=== PATIENT | female | born 1970 | race Caucasian/White ===

== ENCOUNTER 2023-11-01 14:59 | Emergency (ER) | payer OTHER, SELFPAY ==
[2023-11-01 15:13] VITALS: BP 139/68; PULSE 71; RESP 20; TEMP 37.5; O2SAT 100
--- NOTE | 2023-11-01 16:24 | ED.URI ---
HPI - URI/Sore Throat General Chief Complaint: Upper Respiratory Infection Stated Complaint: Cough/Chest Congestion Source: patient, RN notes reviewed and old records reviewed Mode of arrival: ambulatory Limitations: no limitations History of Present Illness HPI Narrative: 53 year old female who presents to [facility] care with complaints of 2 month duration of cough with increased cough for the past 2 weeks. Patient reports that she has increased cough with mucous production of greenish yellow mucous ,Patient reports that she has been using her Albuterol Nebulizer and also her inhaler without resolution of symptoms. Patient reports some low grade temps, patient reports that cough is worse at night.. MD elicited complaint: cough, rhinorrhea and nasal congestion Onset (ago): week(s) (increased symptoms for 2 weeks, has had cough for 2 month) Severity: moderate Able to tolerate fluids by mouth: Yes Treatments prior to arrival: other (inhalers and nebulizer) Related Data Home Medications Medication Instructions Recorded Confirmed amlodipine 2.5 mg tablet 2.5 mg PO DAILY 11/01/23 11/01/23 lurasidone 40 mg tablet 40 mg PO DAILY 11/01/23 11/01/23 sertraline 50 mg tablet 50 mg PO DAILY 11/01/23 11/01/23 sumatriptan succinate 100 mg tablet 100 mg PO BID PRN Migraine Headache 11/01/23 11/01/23 trazodone 50 mg tablet 50 mg PO QHS 11/01/23 11/01/23 Allergies Allergy/AdvReac Type Severity Reaction Status Date / Time hydrocodone Allergy Unknown Unknown Verified 11/01/23 15:28 hydroxyzine Allergy Unknown Unknown Verified 11/01/23 15:28 meperidine Allergy Unknown Unknown Verified 11/01/23 15:28 ANTICHOLINERGICS,OTHER Allergy Unknown Unknown Uncoded 11/01/23 15:28 ATROPINE SULFATE (Generic Allergy Unknown Unknown Uncoded 11/01/23 15:28 Allergy) VISTARIL, DEMEROL, ATROPINE Allergy Unknown Unknown Uncoded 11/01/23 15:28 Review of Systems Review of Systems: CONSTITUTIONAL: Denies malaise, chills, sweats, low grade temps. EYES: Denies visual changes, redness, or discharge. ENT: Reports rhinorrhea, congestion, sinus pain,no otalgia and no sore throat. CARDIOVASCULAR: Denies chest pain, palpitations, or edema. RESPIRATORY: Reports cough which has increased in the past 2weeks.? Denies acute dyspnea. GASTROINTESTINAL: Denies abdominal pain, nausea, vomiting, diarrhea SKIN: Denies rash or itching. MUSCULOSKELETAL: Denies myalgia. NEUROLOGIC: Denies headache. All systems reviewed & are unremarkable except as noted in HPI and below PMFSH Past Medical History Medical History (Updated 11/04/23 @ 20:31 by Julieta Frankel NP) Anxiety and depression CAD (coronary artery disease) Factor V deficiency Surgical History Surgical History (Updated 11/04/23 @ 20:30 by Julieta Frankel NP) H/O: hysterectomy Stented coronary artery Family History Family History (Updated 11/04/23 @ 20:29 by Julieta Frankel NP) Other Heart disease Social History Social History (Updated 11/04/23 @ 20:28 by Julieta Frankel NP) Smoking status: Never smoker Alcohol intake: unknown Substance use type: does not use Gender identity (if verbalized by the patient): Female Comments At time of signature, agree with nursing past medical, surgical, social and family history. There is no relevant family history pertinent to the presenting complaint Exam Narrative: GENERAL: Well-appearing, well-nourished, and in no acute distress. HEAD: Normocephalic EYES: PERRLA, conjunctivae clear ENT: Nares clear, turbinates edematous and erythematous, yellow discharge. Mucous membranes moist. TM pearly mejía with dull light reflex bilaterally; no tragal tenderness. Oropharynx erythematous without lesions. Tonsils not enlarged and without exudate, no drooling, no hoarseness, no trismus, uvula midline. NECK: Supple. No lymphadenopathy CHEST: Clear to auscultation, breath sounds equal. No wheezing, rhonchi, rales, or stridor. No respir
== END 2023-11-01 16:40 | disposition home or self-care (01) ==
PROVIDERS: Emergency Provider Registered Nurse
DX: J32.9 Chronic sinusitis, unspecified (principal); R05.9 Cough, unspecified; F32.A Depression, unspecified; F41.9 Anxiety disorder, unspecified; I25.10 Atherosclerotic heart disease of native coronary artery without angina pectoris; D68.2 Hereditary deficiency of other clotting factors; Z95.5 Presence of coronary angioplasty implant and graft
CPT/HCPCS: 99213; G0463

== ENCOUNTER 2023-11-24 10:08 | Emergency (ER) | payer OTHER, SELFPAY ==
[2023-11-24 10:17] VITALS: BP 132/106; PULSE 61; RESP 16; TEMP 36.2; O2SAT 100
--- NOTE | 2023-11-24 10:29 | ED.URI ---
HPI - URI/Sore Throat General Chief Complaint: Upper Respiratory Infection Stated Complaint: Congestion/Ear Pain Time Seen by Provider: 11/24/23 10:25 Source: patient, RN notes reviewed and old records reviewed Mode of arrival: ambulatory Limitations: no limitations History of Present Illness HPI Narrative: 53-year-old female presents to [facility] Care with complaints of left ear pain with and nasal congestion starting this morning with decreased hearing. She states that she also has some discomfort also to her right ear. Patient reports that she had sinusitis one month ago and was treated with antibiotics at that time and those symptoms resolved after taking medication. She state that she works in a [employer] and they have had a lot of ill clients. MD elicited complaint: rhinorrhea, nasal congestion and other (ear pain) Onset (ago): day(s) (this morning.) Pain scale (0-10): 5 Able to tolerate fluids by mouth: Yes Treatments prior to arrival: none Related Data Home Medications Medication Instructions Recorded Confirmed amlodipine 2.5 mg tablet 2.5 mg PO DAILY 11/01/23 11/24/23 sumatriptan succinate 100 mg tablet 100 mg PO BID PRN Migraine Headache 11/01/23 11/24/23 trazodone 50 mg tablet 50 mg PO QHS 11/01/23 11/24/23 apixaban 2.5 mg tablet (Eliquis) 2.5 mg PO BID 11/24/23 11/24/23 atorvastatin 20 mg tablet 20 mg PO DAILY 11/24/23 11/24/23 lurasidone 80 mg tablet 80 mg PO DAILY 11/24/23 11/24/23 sertraline 100 mg tablet 100 mg PO DAILY 11/24/23 11/24/23 Allergies Allergy/AdvReac Type Severity Reaction Status Date / Time atropine Allergy Unknown Unknown Verified 11/24/23 10:25 hydrocodone Allergy Unknown Unknown Verified 11/24/23 10:23 hydroxyzine Allergy Unknown Unknown Verified 11/24/23 10:23 meperidine Allergy Unknown Unknown Verified 11/24/23 10:23 Review of Systems Review of Systems: CONSTITUTIONAL: Denies malaise, chills, sweats, or fever. EYES: Denies visual changes, redness, or discharge. ENT: Reports rhinorrhea, congestion,no sinus pain,bilateral otalgia, decreased hearing left ear and no sore throat. CARDIOVASCULAR: Denies chest pain, palpitations, or edema. RESPIRATORY: Reports no cough.? Denies dyspnea. GASTROINTESTINAL: Denies abdominal pain, nausea, vomiting, diarrhea SKIN: Denies rash or itching. MUSCULOSKELETAL: Denies myalgia. NEUROLOGIC: Denies headache. All systems reviewed & are unremarkable except as noted in HPI and below PMFSH Past Medical History Medical History (Updated 11/26/23 @ 06:56 by Julieta Frankel NP) Anxiety and depression CAD (coronary artery disease) Factor V deficiency Migraine Schizo affective schizophrenia Surgical History Surgical History (Updated 11/26/23 @ 06:51 by Julieta Frankel NP) H/O: hysterectomy History of carpal tunnel surgery of left wrist History of lumpectomy of left breast Hx of breast reduction, elective Stented coronary artery Family History Family History (Updated 11/04/23 @ 20:29 by Julieta Frankel NP) Other Heart disease Social History Social History (Updated 11/04/23 @ 20:28 by Julieta Frankel NP) Smoking status: Never smoker Alcohol intake: unknown Substance use type: does not use Gender identity (if verbalized by the patient): Female Comments At time of signature, agree with nursing past medical, surgical, social and family history. There is no relevant family history pertinent to the presenting complaint Exam Narrative: GENERAL: Well-appearing, well-nourished, and in no acute distress. HEAD: Normocephalic EYES: PERRLA, conjunctivae clear ENT: Nares clear, turbinates edematous and erythematous, clear discharge. Mucous membranes moist. TM pearly mejía with dull light reflex bilaterally; no tragal tenderness.left ear canal red with some irritation, no drainage. Oropharynx erythematous without lesions. Tonsils not enlarged and without exudate, no drooling, no hoarseness, no trismus, uvul
[2023-11-24 10:46] VITALS: BP 122/73
== END 2023-11-24 10:46 | disposition home or self-care (01) ==
PROVIDERS: Emergency Provider Registered Nurse
DX: H60.502 Unspecified acute noninfective otitis externa, left ear (principal); R09.81 Nasal congestion; I25.10 Atherosclerotic heart disease of native coronary artery without angina pectoris; D68.2 Hereditary deficiency of other clotting factors; F41.9 Anxiety disorder, unspecified; F20.9 Schizophrenia, unspecified; Z95.5 Presence of coronary angioplasty implant and graft
CPT/HCPCS: 99213; G0463

== ENCOUNTER 2024-07-13 08:51 | Emergency (ER) | payer OTHER, SELFPAY ==
--- NOTE | ~2024-07-13 | XR_ITS ---
EXAMINATION: XR chest 2V DATE: 07/13/2024 09:49 INDICATION: Cough. TECHNIQUE: Frontal and lateral views of the chest were obtained. COMPARISON: None. FINDINGS: There is no pneumonia, pleural effusion, or pneumothorax. The heart size is normal. IMPRESSION: 1. No acute cardiopulmonary disease. Reviewed, dictated and finalized at location A. RACY COORDINATOR
[2024-07-13 08:58] VITALS: BP 127/78; PULSE 95; RESP 20; TEMP 37.1; O2SAT 100
--- OUTSIDE RECORDS SUMMARY | 2024-07-13 08:58 | XMS_ITS | Clinical Summary ---
Author Organization [facility] Address [facility] [place] [address] Care Team Providers Care Sandwich Artist Name Role Phone Bridges, Tiffanie TINAJERO Primary Care Provider [phone] Allergies Active Allergy Reactions Criticality Noted Date Comments Atropine Unknown 10/29/2015 Bee Venom Anaphylaxis High 03/30/2015 Meperidine Unknown 10/29/2015 Milk (Cow) Rash Low 03/30/2015 Peanut Oil Anaphylaxis High 04/02/2012 Stops breathing Hydroxyzine Infusion Reaction 12/06/2020 Wasp Venom Protein Other (see comment) High 04/02/20 12 Stops breathing Medications albuterol sulfate HFA 108 (90 Base) MCG/ACT inhaler Inhale 2 puffs into the lungs every 6 (six) hours as needed. 1 Active cetirizine 10 MG tablet Take 10 mg by mouth. Active EPINEPHrine 0.3 MG/0.3ML injection 0.3 mg. 1 Active sertraline (ZOLOFT) 100 MG tablet Take 1 tablet (100 mg total) by mouth nightly at bedtime. 5 Active montelukast 10 MG tablet Take 10 mg by mouth nightly at bedtime. 1 Active lurasidone (LATUDA) 80 MG tablet Take 1 tablet (80 mg total) by mouth daily with breakfast. Active ondansetron 4 MG tablet 1 tablet (4 mg total). 1 Active COMPRESSION STOCKINGS, DME,Indications :Swelling of lower limb Apply 1 Package topically daily. 20-30 mmHg knee high 1 Package 5 1 Active topiramate 100 MG tablet Take 1.5 tablets (150 mg total) by mouth 2 (two) times daily. 1 Active traZODone (DESYREL) 50 MG tablet Take 1 tablet (50 mg total) by mouth nightly at bedtime. at bedtime. 4 Active amLODIPine (NORVASC) 2.5 MG tablet Take 1 tablet (2.5 mg total) by mouth daily. 4 Active apixaban (ELIQUIS) 2.5 MG tablet Take 1 tablet (2.5 mg total) by mouth 2 (two) times daily. 180 tablet 3 4 11/12/19 Active atorvastatin (LIPITOR) 20 MG tablet Take 1 tablet (20 mg total) by mouth nightly at bedtime. 90 tablet 3 4 11/12/19 Active Active Problems Problem Noted Date Diagnosed Date Abnormal nuclear cardiac imaging test 01/06/2021 Swelling of lower limb 12/16/2020 Precordial pain 12/12/2020 Coronary artery disease invo lving [place] coronary artery of [place] heart with angina pectoris 12/12/2020 History of coronary artery stent placement 12/12 Abnormal ECG 12/12/2020 Thrombophlebitis of superfic ial veins of right lower extremity 12/12/2020 History of DVT (deep vein thrombosis) 12/12/2020 History of pulmonary embolism 12/12/2020 Obesity (BMI 30.0-34.9) 12/12/2020 Factor V Leiden mutation ([facility]) 03/27 Encounters Date Type Department Care Team Description 04/23/2024 Decision Diagnostics Message Enc [facility], [address] [address] Rajeev, [facility] Provider Cancelled appointment from Last 3 Months Family History Medical History Relation Comments AAA Father Heart Attack Father Stent Cardiac Father Heart Attack Maternal Grandfather Stroke Maternal Grandmother Breast Cancer Other Ovarian Cancer Other Heart Attack Paternal Grandfather Relation Status Comments Brother Alive Father Alive Maternal Grandfather Maternal Grandmother Mother Alive Other Paternal Grandfather Paternal Grandmother Sister 1 Alive Sister 2 Alive Sister 3 Alive Social History Tobacco Use Types Packs/Day Years Used Date Smoking Tobacco: Never Smokeless Tobacco: Never Alcohol Use Standard Drinks/Week Comments Never 0 (1 standard drink = 0.6 oz pur e alcohol) Comments No Sex and Gender Information Value Date Recorded Sex Assigned at Female 11/09/2023 8:51 AM CDT Legal Sex Female 10:20 PM CDT Gender Identity Female 11/09/2023 8:51 AM CDT Sexual Orientation Straight 11/09/2023 8: 51 AM CDT Occupation Industry Job Start Date Job End Date [employer] Not on file Not on file Not on file Last Filed Vital Signs Vital Sign Reading Time Taken Comments Blood Pressure 122/82 11/12/2023 2:30 PM CDT Pulse 77 11/12/2023 2:30 PM CDT Temperature 36.1 C (97 F) 01/10/2021 9:43 AM CDT Respiratory Rate 16 01/10/2021 9:43 AM CDT Oxygen Saturation 97% 11/12/2023 2:30 PM CDT Inhaled Oxygen Concentration - - Weight 115.5 kg (254 lb 9.6 oz) 11/12/2023 2:30 PM CDT Height 185.4 cm (6' 1 ) 11/12/2023 2:30 PM CDT Body Mass Index 33.59 11/12/2023 2:30 PM CDT Plan of Treatment Health Maintenance Due Date Last Done Comments Colorectal Cancer Screening Colonoscopy (10 Years) 1970 Annual Physical 02/22/1975 Pneumococcal Vaccine: Pediatrics (0 to 5 Years) and At-Risk Patients (6 to 64 Years) (1 of 2 - PCV) 02/22/1978 Hepatitis C 02/22/1990 Hepatitis B Vaccines (1 of 3 - 19+ 3-dose series) 02/22/1991 Mammogram Screening 2012 ASCVD LDL 02/24/2015 02/24/2014 Zoster Vaccines (1 of 2) 02/22/2022 COVID-19 Vaccine (1 - season) 2024 Influenza Adult (#1) 2024 02/25/2019, 02/20/2018, 02/06/2017, Additional history exists DTaP, Tdap and Td Vaccines (2 - Td or Tdap) 08/16/2025 08/17/2015 Meningococcal B Vaccine Aged Out No l onger eligible based on patient's age to complete this topic Meningococcal Vaccine Aged Out No liliane presley eligible based on patient's age to complete this topic RSV Immunizations Under 20 Months Aged Out No longer eligible based on patient's age to complete this topic Procedures Procedure Name Priority Date/Time Associated Diagnosis Comments LIPID PANEL Routine 02/24/2014 12:00 AM CDT from Last 3 Months or Most Recently Relevant to Health Maintenance Results * LIPID PANEL (02/24/2014 12:00 AM CDT) TRIGLYCERIDES 62 0 - 150 mg/dl MEDINFORMATIX TO EPIC CONVERSION CHOLESTEROL 155 0 - 200 mg/dl MEDINFORMATIX TO EPIC CONVERSION HDL 75 40 - 59 mg/dl MEDINFORMATIX TO EPIC CONVERSION LDL CONVERSION 68 0 - 100 mg/dl MEDINFORMATIX TO EPIC CONVERSION 02/24/2014 02/24/2014 Narrative MEDINFORMATIX TO EPIC CONVERSION - 02/27/2014 11:06 AM CDT Reviewed by MILKA Feb 27 2014 11:07:03:000AM us Generic Conversion Md [facility] Final R esult MEDINFORMATIX TO EPIC CONVERSION from Last 3 Months or Most Recently Relevant to Health Maintenance Insurance Advance Directives Documents on File Type Date Recorded Patient Acquisitions Librarian Expl anation Legal Documents 01/13/2015 SLEGAL Care Teams Sandwich Artist Relationship Specialty Start Date End Date Bridges, LIOR Moreno [address] [place] [address] PCP - General NURSE PRACTITIONER 01/20/24
--- OUTSIDE RECORDS SUMMARY | 2024-07-13 08:58 | XMS_ITS | Encounter Summary ---
Author Organization [facility] Address [address] [place] [address] Care Team Providers Care Night Warehouse Manager Name Role Phone Tiffanie Bridges Primary Care Provider [phone] Encounter Details Date Type Department Care Team (Late st Contact Info) Description 04/23/2024 [employer]RU Message Enc [facility] [address] Rajeev, [facility] Provider Cancelled appointment Social History Tobacco Use Types Packs/Day Years [...] file Not on file Not on file documented as of this encounter Plan of Treatment Not on file documented as of this encounter Visit Diagnoses Not on filedocumented in this encounter Care Teams Night Warehouse Manager Relationship Specialty Start Date End Date Tiffanie Bridges APNP [address] [place] [address] PCP - General NURSE PRACTITIONER 01/20/24 documented as of this encounter
--- OUTSIDE RECORDS SUMMARY | 2024-07-13 08:58 | XMS_ITS ---
Author Organization [facility] Address [address] [place] [address] Care Team Providers Care Track Subway Repair Supervisor Name Role Phone Liz Myers Primary Care Provider Reason For Referral Reason excessive subq fat a t left lateral chest wall- patient request evaluation for removal Diagnosis 1 Excessive subcutaneo us fat (E66.9) Referral Organization [facility] Referring Provider First Name Liz Referring Provider Last Name Lucia Referring Provider Speciality Nurse Prac titioner Referred Provider [facility]ICINE REFERRA L Referred Provider Specialty Surgery General Notes Teresa Escobar 024 10:22:10 AM >Referral was sent to [facility] , Awaiting appt, Teresa Escobar 09/21/2023 02:50:02 PM >Appt: 10/11/2023 at 1:00PM [facility] General Surgery - Dr. Morales, Devin7 [facility] [address] Floor [place], [place], Libertad Finch 12/10/2023 08:53:40 AM >PER [facility] APPT HAS BEEN BUMPED Referral Priority Routine Referral Appointment Date 10/11/2023 REASON FOR VISIT Test results Problems Problem Type SNOMED Code ICD Code Onset Dates Problem Status W/U Status Risk Notes Problem [id number] Excessive subcutaneous fat (E66.9) Active confirmed Encounters Encounter Location Date Provider Diagnosis [facility] [address] [place] [address] 08/17/2023Kam Myers Excessive subcutaneo us fat E66.9 Assessments Encounter Date Diagnosis (ICD Code) Assessment Notes Treatment Notes Treatment Clinical Notes Section Notes 08/17/2023 Excessive subcutaneous fat (ICD-10 - E66.9) Plan Of Treatment Referrals Referral Date Details 08/17/2023 08/17/2023, excessiv e subq fat at left lateral chest wall- patient request evaluation for removal, [facility] Progress Notes * Eloise LOGANbaltaaDOB:[birth year] (53 yo F)Acc No.[id number]:08/17/2023 Patient: Renetta CADET :1970 A ge:53 Y S ex:Female Address:[address] [place] [address], [facility] [address] [place] [id number] Subjective: * Chief Complaints: * T est results * Medical History: * Surgical History: * Hospitalization/Major Diagno stic Procedure: * Medications: Objective: * Vitals: * Physical Examination: Assessment: * Assessment: 1. E xcessive subcutaneous fat - E66.9 (Primary) Plan: * Treatment: * Procedure Codes: * true * Date: Generated for Nicolasa zelaya/Nathalia/eTransmitting on: 0 07/13/2024 08:57 AM FAIRGROUND OPERATOR Consultation Request Notes Referral Date Referring Provider Referred Provider Not es 08/17/2023 Liz Myers [facility], exc essive subq fat at left lateral chest wall- patient request evaluation for removal
--- OUTSIDE RECORDS SUMMARY | 2024-07-13 08:58 | XMS_ITS | Data Portability ---
Author Organization [facility] Address [address] [place] [address] Care Team Providers Care Smog Technician Name Role Phone TIFFANIE PARR Primary Care Provider [phone] VILMA CARLTON Psychiatrist [facility] Magistrate Assessment No assessment recorded. Plan of Treatment Reminders Order Date Submit Date Provider Last Modified By Organization Details Last Modified Time Details Appointments ANY 15 2024 08:30A M Tiffanie Parr APN, [employer]-C Not available Not available Not available Lab TSH, ultra-sen sitive, serum 2023 024 TOMEKA [facility], [address], [place], [address], 06/18/2024 12:11:06 CMP, serum or plasma 2023 024 TOMEKA [facility], [address], [place], [address], 06/18/2024 12:11:05 lipid panel, serum 2023 024 TOMEKA [facility], [address], [place], [address], 06/18/2024 12:11:03 CBC 2023 024 TOMEKA [facility], [address], [place], [address], 06/18/2024 12:11:09 HbA1c (hemoglob in A1c), blood 2023 024 LINDSAY [facility], [address], [address], [place], [address], 06/18/2024 12:11:07 Referral None recorded. Procedures None recorded. Surgeries None recorded. Imaging None recorded. Medication Orders topiramat e 100 mg tablet 2024 025 [facility], [address], [address], [place], [place], [id number], 06/17/2024 11:45:59 amoxicill in 500 mg capsule 2024 [facility], [address], [address], [place], [place], [id number], 06/17/2024 11:46:00 furosemid e 20 mg tablet 2024 025 [facility], [address], [address], [place], [place], [id number], 06/17/2024 11:45:57 topiramat e 100 mg tablet 2023 024 [facility], [address], [address], [place], [place], [id number], 02/12/2024 10:44:45 EpiPen 2-Francisco 0.3 mg/0.3 mL injection , auto-inje ctor 2023 [facility], [address], [address], [place], [place], [id number], 06/17/2024 11:13:49 albuterol sulfate HFA 90 mcg/actua tion aerosol inhaler 2023 025 [facility], [address], [address], [place], [place], [id number], 06/17/2024 11:13:50 Patient TargetsNo targets recorded. Patient Instructions Encounter Date Encounter Id Patient Instructions Last Modified By Organization Details Last Modified Time 02/12/2024 [id number] influenza (flu) vaccine: care instructions Not available 02/12/2024 10:44:16 high cholesterol : care instructions Not available 02/12/2024 10:44:16 factor V leiden: care instructions Not available 02/12/2024 10:44:16 A healthy lifestyle: care instructions Not available 02/12/2024 10:44:16 learning about high blood pressure Not available 02/12/2024 10:44:16 Continue all medications as prescribed. Not available 02/12/2024 10:43:19 follow up in 2 months Not available 02/12/2024 10:43:32 06/17/2024 [id number] Acute Sinusitis: Care Instructions [email or web address] Not available 06/17/2024 11:43:41 learning about high blood pressure Not available 06/17/2024 11:43:41 Increase intake of fresh fruits, and vegetables. Avoid packaged foods and fast foods. Follow a low salt diet, drink at least 8-10 8oz glasses of water a day, exercise most days of the week. Take all medications as prescribed. Keep appointments with PCP and all specialists. Not available 06/17/2024 11:43:18 follow up in 4 months Not available 06/17/2024 11:43:27 Reason for Referral None Reported. Results Created Date Observation Date Name Description Value Unit Range Abnormal Flag Note LastModifiedBy Organization Detail LastModifiedTime 06/17/1906/18/2024 LIPID PANEL cholesterol, total 195 mg/dL 100-19 9 Not Available [facility] ([facility]) [address] [facility], [place], [address], 06/18/2024 12:11:03 06/17/19 25 06/18/2024 LIPID PANEL triglyceride s 102 mg/dL 0-149 Not Available [facility] ([facility]) [address] [facility], [place], [address], 06/18/2024 12:11:03 06/17/19 25 06/18/2024 LIPID PANEL HDL cholesterol 61 mg/dL >39 Not Available [facility] ([facility]) [address] [facility] [place], [address], 06/18/2024 12:11:03 06/17/19 25 06/18/2024 LIPID PANEL VLDL cholesterol kari 18 mg/dL 5-40 Not Available [facility] ([facility]) [address] [facility] [place], [address], 06/18/2024 12:11:03 06/17/19 25 06/18/2024 LIPID PANEL LDL chol calc ([facility]) 116 mg/dL 0-99 above high normal Not Available [facility] ([facility]) [address] [facility] [place], [address], 06/18/2024 12:11:03 06/17/19 25 06/18/2024 COMP. METAB OLIC PANEL (14) glucose 88 mg/dL 70-99 Not Available [facility] ([facility]) [address] [facility] [place], [address], 06/18/2024 12:11:05 06/17/19 25 06/18/2024 COMP. METAB OLIC PANEL (14) BUN 21 mg/dL 6-24 Not Available [facility] ([facility]) [address] [facility] [place], [address], 06/18/2024 12:11:05 06/17/19 25 06/18/2024 COMP. METAB OLIC PANEL (14) creatinine 1.23 mg/dL 0.57-1 .00 above high normal Not Available [facility] ([facility]) [address] [facility] [place], [address], 06/18/2024 12:11:05 06/17/19 25 06/18/2024 COMP. METAB OLIC PANEL (14) eGFR 53 mL/mi n/1.7 3 >59 below low normal Not Available [facility] ([facility]) [address] [facility] [place], [address], 06/18/2024 12:11:05 06/17/19 25 06/18/2024 COMP. METAB OLIC PANEL (14) BUN/creatini ne ratio 17 9-23 Not Available [facility] ([facility]) [address] [facility] [place], [address], 06/18/2024 12:11:05 06/17/19 25 06/18/2024 COMP. METAB OLIC PANEL (14) sodium 140 mmol/ L 134-14 4 Not Available [facility] ([facility]) [address] [facility] [place], [address], 06/18/2024 12:11:05 06/17/19 25 06/18/2024 COMP. METAB OLIC PANEL (14) potassium 4.0 mmol/ L 3.5-5. 2 Not Available [facility] ([facility]) [address] [facility] [place], [address], 06/18/2024 12:11:05 06/17/19 25 06/18/2024 COMP. METAB OLIC PANEL (14) chloride 107 mmol/ L 96-106 above high normal Not Available [facility] ([facility]) [address] [facility] [place], [address], 06/18/2024 12:11:05 06/17/19 25 06/18/2024 COMP. METAB OLIC PANEL (14) carbon dioxide, total 22 mmol/ L 20-29 Not Available [facility] ([facility]) [address] [facility] [place], [address], 06/18/2024 12:11:05 06/17/19 25 06/18/2024 COMP. METAB OLIC PANEL (14) calcium 9.5 mg/dL 8.7-10 .2 Not Available [facility] ([facility]) [address] [facility], [place], [address], 06/18/2024 12:11:05 06/17/19 25 06/18/2024 COMP. METAB OLIC PANEL (14) protein, total 6.9 g/dL 6.0-8. 5 Not Available [facility] ([facility]) [address] [place], [address], 06/18/2024 12:11:05 06/17/19 25 06/18/2024 COMP. METAB OLIC PANEL (14) albumin 4.2 g/dL 3.8-4. 9 Not Available [facility] ([facility]) [address] [place] [place], [address], 06/18/2024 12:11:05 06/17/19 25 06/18/2024 COMP. METAB OLIC PANEL (14) globulin, total 2.7 g/dL 1.5-4. 5 Not Available [facility] ([facility]) [address] [facility] [place], [address], 06/18/2024 12:11:05 06/17/19 25 06/18/2024 COMP. METAB OLIC PANEL (14) bilirubin, total 0.3 mg/dL 0.0-1. 2 Not Available [facility] ([facility]) [address] [facility] [place], [address], 06/18/2024 12:11:05 06/17/19 25 06/18/2024 COMP. METAB OLIC PANEL (14) alkaline phosphatase 79 IU/L 44-121 Not Available [facility] ([facility]) [address] [facility] [place], [address], 06/18/2024 12:11:05 06/17/19 25 06/18/2024 COMP. METAB OLIC PANEL (14) AST (SGOT) 17 IU/L 0-40 Not Available [facility] ([facility]) [address] [facility] [place], [address], 06/18/2024 12:11:05 06/17/19 25 06/18/2024 COMP. METAB OLIC PANEL (14) ALT (SGPT) 12 IU/L 0-32 Not Available [facility] ([facility]) [address] [facility], [place], [address], 06/18/2024 12:11:05 06/17/19 25 06/18/2024 TSH RFX ON ABNOR MAL TO FREE T4 TSH 6.140 uIU/m L 0.450- 4.500 above high normal Not Available [facility] ([facility]) [address] [facility], [place], [address], 06/18/2024 12:11:06 06/17/19 25 06/17/2024 HEMOG LOBIN A1C hemoglobin A1C 5.5 % 4.8-5. 6 Predi abete s: 5.7 - 6.4 Diabe dolly: >6.4 Glyce lilia contr ol for adult s with diabe dolly: <7.0 Not Available [facility] ([facility]) [address] [facility], [place], [address], 06/18/2024 12:11:07 06/17/19 25 06/18/2024 T4F T4,free (direct) 0.76 NG/dL 0.82-1 .77 below low normal Not Available [facility] ([facility]) [address] [place], [address], 06/18/2024 12:11:09 06/17/19 25 06/17/2024 CBC, PLATE LET, NO DIFFE RENTI AL WBC 6.4 x10e3 /uL 3.4-10 .8 Not Available [facility] ([facility]) [address] [facility], [place], [address], 06/18/2024 12:11:09 06/17/19 25 06/17/2024 CBC, PLATE LET, NO DIFFE RENTI AL RBC 4.39 x10e6 /uL 3.77-5 .28 Not Available [facility] ([facility]) [address] [facility], [place], [address], 06/18/2024 12:11:09 06/17/1906/17/2024 CBC, PLATE LET, NO DIFFE RENTI AL hemoglobin 12.5 g/dL 11.1-1 5.9 Not Available [facility] ([facility]) [address] [facility], [place], [address], 06/18/2024 12:11:09 06/17/1906/17/2024 CBC, PLATE LET, NO DIFFE RENTI AL hematocrit 38.6 % 34.0-4 6.6 Not Available [facility] ([facility]) [address] [facility], [place], [address], 06/18/2024 12:11:09 06/17/1906/17/2024 CBC, PLATE LET, NO DIFFE RENTI AL MCV 88 fL 79-97 Not Available [facility] ([facility]) [address] [facility], [place], [address], 06/18/2024 12:11:06/17/1906/17/2024 CBC, PLATE LET, NO DIFFE RENTI AL MCH 28.5 pg 26.6-3 3.0 Not Available [facility] ([facility]) [address] [facility], [place], [address], 06/18/2024 12:11:09 06/17/1906/17/2024 CBC, PLATE LET, NO DIFFE RENTI AL MCHC 32.4 g/dL 31.5-3 5.7 Not Available [facility] ([facility]) [address] [facility], [place], [address], 06/18/2024 12:11:09 06/17/19 25 06/17/2024 CBC, PLATE LET, NO DIFFE RENTI AL RDW 12.2 % 11.7-1 5.4 Not Available [facility] ([facility]) [address] [facility], [place], [address], 06/18/2024 12:11:09 06/17/19 25 06/17/2024 CBC, PLATE LET, NO DIFFE RENTI AL platelets 227 x10e3 /uL 150-45 0 Not Available [facility] ([facility]) [address] [facility], [place], [address], 06/18/2024 12:11:09 Result Notes None recorded. Problems Name Problem SNOMED Code Status Onset Date Resolution Date Notes Provider Name and Address Organization Details Recorded Time Migraine 90023905 Active 2023 Tiffanie Parr APN, FNP-C Attn: Steve pantoja,[address] [facility], [place], [place], [address] [place] [address] 2, [facility] - [facility] 4 10:42:10 Allergic reaction to bee sting 585923741 Active 2023 Tiffanie Parr APN, FNP-C Attn: Steve pantoja,[address] [facility], [place], [place], [address] [place] [address] 2, [facility] - [place] 4 10:42:14 Obesity 815288103 Active 2023 Tiffanie Parr APN, FNP-C Attn: Tamarain g,[address] [facility], [place], [place], [address] [place] [address] 2, [facility] - [place] 4 10:42:15 Factor V Leiden mutation 610419099 Active 2023 Tiffanie Parr APN, FNP-C Attn: Steve g,[address] [facility], [place], [address], [place] - [place] 4 10:42:21 Essential hypertension 09539563 Active 2023 Tiffanie Parr APN, FNP-C Attn: Steve g,[address] [facility], [place], [place], [address] [place] [address] 2, [place] - [facility] 4 10:42:22 Mild intermittent asthma 446156509 Active 2023 Tiffanie Parr APN, FNP-C Attn: Steve g,[address], [place], [address], [facility] - [place] 4 10:42:24 Hyperlipidemia 46670724 Active 2023 Tiffaniejose de jesus Parr APN, [employer]ER-C Attn: Steve g,[address], [place], [address], [facility] - [place] 4 10:42:26 Mixed anxiety and depressive disorder 386478880 Active 2023 Tiffanie THAO Parr, [employer]ER-C Attn: Steve g,[address], [place], [address], [facility] - [place] 4 10:42:28 Problem Notes None recorded. Procedures Surgical History Date Name Laterality Status Provider Name and Address Organization Details Recorded Time 05/21/19 23 Breast reduction completed PIOTR Arrieta [facility] 02/12/2024 10:18:35 05/21/19 23 cardiac catheterization completed PIOTR Arrieta [facility] 02/12/2024 10:18:49 05/21/19 15 Total hysterectomy completed PIOTR Arrieta [facility] 02/12/2024 10:10:59 05/21/18 97 Tubal Ligation completed Carmen Sheldon [place] [facility] 09/04/2014 09:15:51 05/21/18 91 Knee Surgery completed Carmen Sheldon [place] [facility] 09/04/2014 09:15:51 05/21/18 86 Reconstructive Surgery completed Carmen Sheldon [place] [facility] 09/04/2014 09:15:51 Imaging Results None recorded. Procedure Notes None recorded. Medical Equipment None Reported. Allergies Allergen ID Allergen Name Allergen Category Reaction Reaction Severity Criticality Documentation Date Start Date Code Code System Note Provider Name and Address Organization Details Recorded Time 17700920 peanut allergeni c extract food,medi cation anaphylax is Not available Not available 02/12/2024 16607 8 RxNorm Not Available Not Available Not Available 087118 bee pollen environme nt,medica tion anaphylax is severe Not available 02/12/2024 59259 7 RxNorm Not Available Not Available Not Available Medications Name Sig Start Date Stop Date Status Note LastModified by Organization Details LastModified Time amoxicillin 500 mg capsule Take 1 capsule every 8 hours by oral route for 10 days. 2024 active Not Available Not Available Not Avai lable furosemide 40 mg tablet TAKE 1 TABLET BY MOUTH EVERY DAY 06/17 completed Not Available Not Available Not Available atorvastati n 20 mg tablet 06/17 completed Not Available Not Available Not Available trazodone 50 mg tablet TAKE 1 TABLET BY MOUTH AT BEDTIME NEEDED active Not Available Not Available No t Available ofloxacin 0.3 % eye drops 02/11 completed Not Available Not Available Not Available sumatriptan 100 mg tablet TAKE 1 TABLET BY MOUTH AT LEAST 2 HOURS BETWEEN DOSES TWICE DAILY FOR 30 DAYS 02/11 completed Not Available Not Available Not Available prazosin 1 mg capsule Take 1 capsule every day by oral route at bedtime. active Not Available Not Available No t Available ondansetron HCl 4 mg tablet TAKE 1 TABLET BY MOUTH TWICE DAILY FOR 14 DAYS 02/11 completed Not Available Not Available Not Available prednisone 20 mg tablet TAKE 1 TABLET BY MOUTH TWICE DAILY 02/11 completed Not Available Not Available Not Available sertraline 100 mg tablet TAKE 1 TABLET BY MOUTH DAILY active Not Available Not Available No t Available sumatriptan 50 mg tablet 02/11 completed Not Available Not Available Not Available acetaminoph en 300 mg-codeine 15 mg tablet TAKE 1 TABLET BY MOUTH EVERY 6 HOURS NEEDED 02/11 completed Not Available Not Available Not Available amlodipine 2.5 mg tablet TAKE 1 TABLET BY MOUTH DAILY 06/17 completed Not Available Not Available Not Available tramadol 50 mg tablet TAKE 1 TABLET BY MOUTH EVERY 8 HOURS NEEDED FOR MODERATE OR MORE SEVERE PAIN 06/17 completed Not Available Not Available Not Available levothyroxi ne 25 mcg tablet Take 1 tablet every day by oral route in the morning. 2024 active Not Available Not Available Not Avai lable ofloxacin 0.3 % ear drops INSTILL 5 DROPS IN THE LEFT EAR TWICE DAILY FOR 7 DAYS. 02/11 completed Not Available Not Available Not Available amoxicillin 875 mg tablet TAKE 1 TABLET BY MOUTH EVERY 12 HOURS 02/11 completed Not Available Not Available Not Available erythromyci n 5 mg/gram (0.5 %) eye ointment 02/11 completed Not Available Not Available Not Available buspirone 10 mg tablet 06/17 completed Not Available Not Available Not Available furosemide 20 mg tablet Take 1 tablet every day by oral route. 2024 active Not Available Not Available Not Avai lable albuterol sulfate HFA 90 mcg/actuati on aerosol inhaler Inhale 2 puffs every 4 hours by inhalatio n route as needed. 06/17 completed Not Available Not Available Not Available cefdinir 300 mg capsule 06/17 completed Not Available Not Available Not Available topiramate 100 mg tablet Take 1 tablet twice a day by oral route. 2024 active Not Available Not Available Not Avai lable sertraline 50 mg tablet TAKE 1 TABLET BY MOUTH DAILY 02/11 completed Not Available Not Available Not Available escitalopra m 20 mg tablet TAKE 1 TABLET BY MOUTH EVERY DAY 06/17 completed Not Available Not Available Not Available topiramate 50 mg tablet TAKE 1 TABLET BY MOUTH TWICE DAILY 06/17 completed Not Available Not Available Not Available lurasidone 40 mg tablet TAKE 1 TABLET BY MOUTH DAILY 02/11 completed Not Available Not Available Not Available lurasidone 80 mg tablet TAKE 1 TABLET BY MOUTH EVERY DAY active Not Available Not Available No t Available EpiPen 2-Francisco 0.3 mg/0.3 mL injection, auto-inject or Take 1 auto by injection route as needed, for allergic reaction. 06/17 completed Not Available Not Available Not Available Eliquis 2.5 mg tablet twice daily active Not Available Not Available No t Available Vitals Date Recorded Body height Body mass index (BMI) Body weight Oxygen saturation Oxygen saturation in Arterial blood by Pulse oximetry Respiratory rate Body temperature Heart rate Systolic blood pressure Diastolic blood pressure Provider Name and Address Organization Details Last Updated DateTime 4 182.88 cm 30.2 kg/m2 129015. 1 g 97 % 97 % 16 /min 97.5 [degF] 80 /min 110 mm[Hg] 72 mm[Hg] PIOTR Arrieta [place] [facility] 4 10:22:13 Date Recorded Body height Body mass index (BMI) Body weight Oxygen saturation Oxygen saturation in Arterial blood by Pulse oximetry Respiratory rate Body temperature Heart rate Systolic blood pressure Diastolic blood pressure Provider Name and Address Organization Details Last Updated DateTime 182.88 cm 27.8 kg/m2 97020.4 4 g 99 % 99 % 16 /min 98 [degF] 58 /min 113 mm[Hg] 72 mm[Hg] PIOTR Arrieta [place] [facility] 11:11:50 Social History Question Answer Notes LastModified by Organizat ion Details LastModified Time Tobacco Smoking Status Never Smoker PIOTR Arrieta [place], [place] [facility] 02/12/2024 10:14:26 What Is Your Level Of Alcohol Consumption? None Information not available 06/17/2024 Are You Blind Or Do You Have Difficulty Seeing? No Information not available 06/17/2024 What Is Your Level Of Caffeine Consumption? Occasional Tea Information not available 06/17/2024 In The 14 Days Before Symptom Onset, Have You Had Close Contact With A Laboratory-confir med COVID-19 While That Case Was Ill? No Information not available 02/12/2024 In The 14 Days Before Symptom Onset, Have You Had Close Contact With A Person Who Is Under Investigation For COVID-19 While That Person Was Ill? No Information not available 02/12/2024 Have You Been To An Area Known To Be High Risk For COVID-19? No Information not available 02/12/2024 Are You Currently Employed? Yes Information not available 02/12/2024 Are You Deaf Or Do You Have Serious Difficulty Hearing? No Information not available 06/17/2024 What Type Of Diet Are You Following? REGULAR Information not available 02/12/2024 What Is Your Occupation? [employer] Information not available 06/17/2024 Are There Any Guns Present In Your Home? No Information not available 02/12/2024 What Was The Date Of Your Most Recent Tobacco Screening? 06/17/2024 Information not available 06/17/2024 How Many Children Do You Have? 1 Information not available 02/12/2024 What Is Your Relationship Status? Information not available 02/12/2024 Do You Use Your Seat Belt Or Car Seat Routinely? Yes Information not available 02/12/2024 Do You Have Smoke And Carbon Monoxide Detectors In Your Home? Yes Information not available 02/12/2024 Are You Passively Exposed To Smoke? No Information no t available 02/12/2024 Do You Feel Stressed (tense, Restless, Nervous, Or Anxious, Or Unable To Sleep At Night)? [id number] Information not available 06/17/2024 Do You Use Any Illicit Or Recreational Drugs? No Information not available 02/12/2024 Do You Use Sunscreen Routinely? Yes Information not available 02/12/2024 Has Tobacco Cessation Counseling Been Provided? No Information not available 02/12/2024 Do You Or Have You Ever Used Any Other Forms Of Tobacco Or Nicotine? No Information not available 02/12/2024 Sex: Female Functional Status Question Answer Note LastModified by Organization D etails LastModified Time Are you able to care for yourself? Yes Information not available 02/12/2024 What is your exercise level? Moderate Information not available 06/17/2024 Mental Status None recorded. Family History Relationship Description Onset Age of this Age Resolved Age Notes LastModified by Organization Details LastModified Time Father Malignant tumor of kidney [email or web address] Not available 01/20 10:12:03 Father Malignant tumor of prostate [email or web address] Not available 01/20 10:12:09 Father Diabetes mellitus [email or web address] Not available 01/20 10:12:32 Father Myocardial infarction [email or web address] Not available 10:13:39 Sister Diabetes mellitus jschulterma Not available 01/20 10:12:32 Sister Cerebrovascu lar accident [email or web address] Not available 0 02/12/2024 10:13:41 Sister Malignant tumor of ovary jschulterma Not available 01/20 10:13:55 Paternal Uncle Malignant tumor of kidney jschulterma Not available 01/20 10:12:51 Paternal Uncle Crohn's disease jschulterma Not available 01/20 10:13:13 Paternal Grandfather Family history of cancer of colon jschulterma Not available 01/20 10:12:59 Paternal Grandfather Myocardial infarction jschulterma Not available 10:13:39 Brother Crohn's disease jschulterma Not available 01/20 10:13:13 Paternal Grandmother Myocardial infarction jschulterma Not available 10:13:39 Notes:bio mom drowned when p t was 6 Medical History Condition Response Coronary Artery Disease N Kidney Cyst N Blood Diseases N Hyperthyroidism N Blood disorders N Blood Transfusion N MRSA N Emphysema N Depression Y COPD N Blood Clots Y Pneumonia N Premature N Peripheral Arterial Disease N Edema N TIA N Headaches/Migraines N Anxiety Disorder Y Obesity N Polyps N Infertility N Acid Reflux (GERD) N Hematuria N Stroke N Neck Injury N Polio N Hospital Admission other than N Neurologic Disorder N Other Sleep Disorders N Rheumatoid Arthritis N Fibromyalgia N Abdominal Aortic Aneurysm Repair N Kidney Disease N Heart Conditions N Heart Disease/Heart Problems N Hospitalizations N Brain Tumors N Acne N Skin Problems N Eating Disorder N Meningitis N Constipation N Tuberculosis N Cerebral Palsy N Myocardial Infarction N Asthma Y Substance Abuse N Peripheral Vascular Disease N Vertigo N Sleep Disorder N Cirrhosis N Pulmonary Embolism N Chicken Pox N Hematologic Disease N Flomax Use Past or Present N Anxiety/Depression N Thyroid Disease N Colon Cancer N Lung Disease N Glaucoma N Developmental or Behavioral Disorders N Bipolar N Pacemaker N Diverticulitis/Diverticulosis N Orthopedic Problems N Anesthesia Complications N Orthotics N Head Injury/Concussion N Congenital Anomalies N Stewart Bite N Chronic Kidney Disease N Endometriosis N Liver Disease N Schizophrenia N Dialysis N Speech Delay N Chronic Obstructive Pulmonary Disease N Parkinson's Disease N Thyroid Problems N GI Problems N Developmental Delay N Anemia Y Multiple Sclerosis N Immune System Disorder N Colon Polyps N Heart Attack (PA) N Diabetes N Cardiomyopathy N Blood Transfusions N Heart Problems/Murmur Y Eye Trauma N Congestive Heart Failure (CHF) N Valvular Heart Disease N Hyperlipidemia N Double Vision N Abuse/Domestic Violence N Hepatitis B N Lupus N Epilepsy/Seizures N Reflux/GERD N Aneurysm N Heart Disease Y Bronchitis N Pre-Eclampsia N Hypertension N Heart Failure N Other N Gout N High Blood Pressure Y Atrial Fibrillation N Kidney Stones N Head Trauma/Injury N Congenital Heart Disease N Spine Problems N Gastrointestinal Disease N Lung Mass N Sinusitis N Obstructive Sleep Apnea N Muscle, Joint, or Bone Problems N Autoimmune disease N Vision or Eye Problems N Arthritis N Blood Clot N Cancer N Seasonal allergies N Leg or Foot Ulcers N Raynaud's Disease N Aortic Aneurysm N Arrhythmia N Headaches Y Heart Problems N Ambloypia N Ear or Hearing Problems N Hyperparathyroidism N Migraines N Artificial Joints N Kidney or Bladder Problems N NSAID Use N Have you had a mammogram in the last yea r? N Encephalitis N PTSD N Ulcers N Prostate Hypertrophy N Bleeding Disorder N AIDS/HIV N Urinary Tract Infection N Back Problems N Allergies Y Atrial Flutter N GERD/Reflux N Hepatitis N Autism Spectrum Disorder (ASD) N Breast Cancer N Hernia N Hypothyroidism N Breast Problem N Genitourinary Disease N Deep Vein Thrombosis N Varicose Veins N Cystic Fibrosis N Hearing Loss N Developmental Problems N Carotid Disease N Vitamin D Deficiency N ADHD N Bladder or Kidney Problems N High Cholesterol Y [place]iers N Valvular Abnormalities N Psychiatric/Mental Health Condition N Organ Transplant N Foot Deformity N Allergies/Hayfever N Dyslipidemia N Hyponatremia N Diabetic Eye Disease N Osteoporosis/Osteopenia N Back Pain N Proteinuria N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
--- OUTSIDE RECORDS SUMMARY | 2024-07-13 08:58 | XMS_ITS | Patient Health Record ---
Author Organization [facility] Address [address] [place] [address] Care Team Providers Care Kelp Cutter Name Role Phone Lucia Liz Primary Care Provider [phone] Allergies Allergen (clinical drug ingredient) Drug/Non Drug Allergy documented on EMR Reaction Allergy Type Onset Date Status meperidine Demerol Unknown Drug Allergy Active hydroxyzine Vistaril Unknown Drug Allergy Activ e peanut allergenic extract Peanut (Diagnostic) Unknown Drug Allergy Active Bee Sting Unknown Allergy Active Results Component Value Reference Range Notes Ultrasound : Soft Tissue Upp er Back : [id number] Reviewed date:08/20/2023 12:45:16 PM Interpretation: Performing Lab: Notes/Report: Reason For Referral Reason excessive subq fat a t left lateral chest wall- patient request evaluation for removal Diagnosis 1 Excessive subcutaneo us fat (E66.9) Referral Organization [facility] Referring Provider First Name Liz Referring Provider Last Name Lucia Referring Provider Speciality Nurse Prac titioner Referred Provider [facility] MEDICINE REFERRA L Referred Provider Specialty Surgery General Notes Teresa Escobar 024 10:22:10 AM >Referral was sent to [facility] , Awaiting apptLuz Julie 09/21/2023 02:50:02 PM >Appt: 10/11/2023 at 1:00PM [facility] General Surgery - Dr. Morales, [address] [facility] [address] [place], [place], Libertad Finch 12/10/2023 08:53:40 AM >PER RUTH APPT HAS BEEN BUMPED Referral Priority Routine Referral Appointment Date 10/11/2023 Medications Medication SIG (Take, Route, Frequency, Duration) Notes Start Date End Date Status Furosemide 40 MG TAKE 1 TABLET BY MOUTH EVERY DAY for 90 Active Lancets - as directed externally four times daily for 30 days 09/22/2022 Active Amitriptyline HCl 50 MG TAKE 1 TABLET BY MOUTH EVERY DAY AT BEDTIME for 90 Active buPROPion HCl ER (XL) 150 MG 1 tablet in the morning Orally Once a day for 30 day(s) psych-dr. estrada Not-Taking Montelukast Sodium 10 MG TAKE 1 TABLET BY MOUTH EVERY DAY for 90 Active Albuterol Sulfate HFA 108 (90 Base) MCG/ACT 1 puff as needed Inhalation every 4 hrs for 90 days Not-Taking Topiramate 100 MG 1 1/2 tablet Orally twice daily for 30 days Active Alcohol Wipes 70 % as directed Externally four times daily for 30 days 09/22/2022 Active Ranolazine ER 500 MG 1 tablet Orally Twice a day RUTH CARDIO Not-Taking Eliquis 2.5 MG 1 tablet Orally Twice a day for 90 days Active Ondansetron HCl 4 MG 1 tablet Orally twice daily for 14 days 05/30/2023 Active Atorvastatin Calcium 20 MG 1 tablet Orally Once a day RUTH CARDIO Active Sertraline HCl 50 MG 1 tablet Orally Once a day for 30 days psych- dr. estrada Active SUMAtriptan Succinate 100 MG 1 tablet at least 2 hours between doses as needed Orally Twice a day for 30 days 12/13/2022 Active Fluticasone Propionate 50 MCG/ACT 1 spray in each nostril Nasally Once a day for 90 days 06/08/2022 Active Escitalopram Oxalate 20 MG TAKE 1 TABLET BY MOUTH EVERY DAY for 30 Active Lurasidone HCl 40 MG TAKE 1 TABLET BY MOUTH EVERY DAY WITH FOOD for 30 Active Immunizations Vaccine Route Administration Date Status Comme nts TDAP VACCINE >7 IM Unknown 08/17/2015 Administered PNEUMOCOCCAL VACC 13 JANETTE IM Unknown 07/03/2022 Refused Pneumococcal polysaccharide PPV23 Unknown 05/29/2019 Ad ministered Pfizer COVID-19 Unknown 03/06/2021 Administered Pfizer COVID-19 Unknown 05/31/2021 Administered Influenza, seasonal, injecta ble (split), for 3 yrs and up Unknown 03/21/2013 Administered Hep A, adult Unknown 10/25/2009 Administered Flucelvax, quadrivalent Unknown 03/09/2022 Administered FLU VAC NO PRSV 4 JANETTE >6 MO Unknown 03/30/2015 Administ ered FLU VAC NO PRSV 4 JANETTE >6 MO Unknown 03/02/2016 Administ ered FLU VAC NO PRSV 4 JANETTE >6 MO Unknown 02/06/2017 Administ ered FLU VAC NO PRSV 4 JANETTE >6 MO Unknown 02/20/2018 Administ ered FLU VAC NO PRSV 4 JANETTE >6 MO Unknown 02/25/2019 Administ ered FLU VAC NO PRSV 4 JANETTE >6 MO Unknown 02/19/2020 Administ ered Social History Tobacco Use: Social History Observation Description Date Details (start date - stop date) Never Smoker NA - NA Tobacco Use/Smoking Question Answer Notes Are you a nonsmoker Alcohol Screen (Audit-C) Question Answer Notes Did you have a drink containing alcohol in the p ast year? No Points 0 Interpretation Negative Sexual History Question Answer Notes Had sex in the past 12 months (vaginal, oral, or anal)? Yes with Men only Use protection? No Prevention strategies discussed: Condoms Have you ever had a Sexually transmitted disease ? No Tobacco use other than smoking: Question Answer Notes Are you an other tobacco user? No Problems Problem Type SNOMED Code ICD Code Onset Dates Problem Status W/U Status Risk Notes Problem 0408815 Primary insomnia (F51.01) 09/23/19 23 Active confirmed Problem 231440345 Hypoglycemia (E16.2) 09/23/19 23 Active confirmed Problem 53357029 Constipation, unspecified constipation type (K59.00) 04/20/20 21 Active confirmed Problem 70523605590401194 Arm paresthesia, left (R20.2) Active confirmed Problem 33747763 Migraine without status migrainosus, not intractable, unspecified migraine type (G43.909) 03/23/20 21 Active confirmed Problem 530061569 Meningioma (D32.9) 04/04/20 21 Active confirmed Problem 835408621 Factor 5 Leiden mutation, heterozygous (D68.51) 07/03/19 23 Active confirmed Problem 89428707 Tooth decay (K02.9) 02/17/20 22 Active confirmed Problem 41109941 Stress incontinence of urine (N39.3) 03/23/20 21 Active confirmed Problem 202161925 Moderate persistent asthma, unspecified whether complicated (J45.40) 03/23/20 21 Active confirmed Problem 389411639 History of heart artery stent (Z95.5) 07/03/19 23 Active confirmed Problem 728576018994 Has daytime drowsiness (R40.0) 09/23/19 23 Active confirmed Problem 656047503 Bipolar depression (F31.9) 05/04/20 23 Active confirmed Problem 802903987 Seasonal affective disorder (F33.8) 05/30/19 24 Active confirmed Problem Obese class II (630905216071852) BMI 35.0-35.9,adult (Z68.35) 05/04/20 23 Active confirmed Problem Obese class I (094499266854948) BMI 33.0-33.9,adult (Z68.33) 11/09/19 23 Active confirmed Problem Body mass index 30.00 to 34.99 (694192571936052) BMI 34.0-34.9,adult (Z68.34) 04/12/20 22 Active confirmed Problem 435508307 Excessive subcutaneous fat (E66.9) Active confirmed Vital Signs Heart Rate 79 /min 08/01/2023 Temperature 97.5 degrees Fahrenheit 08/01/2023 Respiratory Rate 18 /min 08/01/2023 Height-cm 180.34 cm 08/01/2023 Blood pressure diastolic 81 mm Hg 08/01/2023 Oximetry 99 % 08/01/2023 Weight-kg 116.12 kg 08/01/2023 Height 71 in 08/01/2023 Blood pressure systolic 116 mm Hg 08/01/2023 Weight 256 lbs 08/01/2023 BMI 35.7 kg/m2 08/01/2023 Encounters Encounter Location Date Provider Diagnosis [facility] [address] [place] [address] 08/01/2023 Liz Myers Migraine without status migrainosus, not intractable, unspecified migraine type G43.909 ; Mass of subcutaneous tissue R22.9 ; BMI 35.0-35.9,adult Z68.35 ; Exercise counseling Z71.82 and Dietary counseling Z71.3 [facility] [address] [place] [address] 08/17/2023 Liz Myers Excessive subcutaneo us fat E66.9 Assessments Encounter Date Diagnosis (ICD Code) Assessment Notes Treatment Notes Treatment Clinical Notes Section Notes 08/17/2023 Excessive subcutaneous fat (ICD-10 - E66.9) 08/01/2023 Mass of subcutaneous tissue (ICD-10 - R22.9) 08/01/2023 Migraine without status migrainosus, not intractable, unspecified migraine type (ICD-10 - G43.909) Take medicines only as directed by your doctor. Take only the headache medicines recommended by your doctor, including [id number] r medicines. Always have your medicines with you in case you begin to get a headache. Keep a headache diary so you and your doctor know what helps and when you are getting headaches. Following a regular daily pattern will help. Eat meals at regular hours and do not skip breakfast. Fasting is a common cause of headache. Go to bed and get up at the same time every day. Regular aerobic exercise is helpful. You should exercise at least 20 minutes a day, three days a week. Yoga, meditation, relaxation therapy, and simple pleasurable activities may help. Your doctor may ask you to keep a headache calendar to help track your headache progress. 08/01/2023 BMI 35.0-35.9,adult (ICD-10 - Z68.35) 08/01/2023 Exercise counseling (ICD-10 - Z71.82) 08/01/2023 Dietary counseling (ICD-10 - Z71.3) Plan Of Treatment Pending Test Test Name Order Date X ray : Chest with 2 views : 50360 04/27 MAMMOGRAM, SCREENING : 72828 11/08/2022 Sleep Study, Home : 18932 09/22/2022 Insurance Providers Payer Name Payer Address Payer Phone Subscriber Number Group Number Insured Name Patient Relationship to Insured Coverage Start Date Coverage End Date [facility] [address] [facility] [place] [address] [id number] Renetta Lawrence Self - patient is the insured Medicaid [facility] Primary Only [address] [place] [address] [id number] Renetta Lawrence Self - patient is the insured Dental [address] [id number] Eloise Lawrencenna Self - patient is the insured Medical (General) History Medical History History ICD Code schizoaffective disorder IBS factor 5 SAD Stent in Heart from [facility] Recluse spider bite Surgical History Surgery Date(Month/Year) stint placed RT ventricle 2001 heart cath 2020 hysterectomy 2011 breast reduction 2012 reconstructive female surgery 1986 Hospitalization History Reason Date(Month/Year) [facility] - cardiac issues 07/03/2022 [facility] - flu 06/04/2022 [facility] - right foot injury 12/2021 [facility]- headaches and blurred vision 2020
--- OUTSIDE RECORDS SUMMARY | 2024-07-13 08:58 | XMS_ITS | Clinical Summary ---
Author Organization [facility] Address [address] [place] [address] Phone Care Team Providers Care Language Arts Teacher Name Role Phone Provider, Not On File Primary Care Provider Unav ailable Allergies Active Allergy Reactions Criticality Noted Date Comments Meperidine Unknown 09/04/2023 Medications Apixaban (ELIQUIS PO) Take 20 mg by mouth daily. Active metoprolol tartrate (LOPRESSOR) 25 MG TabletIndicatio ns:Hypertension Take 20 mg by mouth 2 times daily. Indications: High Blood Pressure Disorder Active furosemide (Lasix) 40 MG TabletIndicatio ns:Hypertension Take 40 mg by mouth daily. Indications: High Blood Pressure Disorder Active POTASSIUM CHLORIDE PO Take by mouth. Active ALPRAZolam (Xanax) 0.5 MG Tablet Take 0.5 mg by mouth 3 times daily as needed. Active traMADol (ULTRAM) 50 MG TabletIndicatio ns:Contusion of face, initial encounter,Contu morro of right forearm, initial encounter Take 1 Tablet by mouth every 8 hours as needed for Moderate or more severe pain. 12 Tablet 01/16/2024 Active Social History Tobacco Use Types Packs/Day Years Used Date Smoking Tobacco: Never Smokeless Tobacco: Never Alcohol Use Standard Drinks/Week Comments Not Currently 0 (1 standard drink = 0.6 oz pur e alcohol) Comments No Sex and Gender Information Value Date Recorded Sex Assigned at Not on file Legal Sex Female 3:50 PM CDT Gender Identity Not on file Sexual Orientation Not on file Last Filed Vital Signs Vital Sign Reading Time Taken Comments Blood Pressure 140/79 01/16/2024 11:53 AM CDT Pulse 74 01/16/2024 11:53 AM CDT Temperature 36.8 C (98.2 F) 01/16/2024 8:56 AM CDT Respiratory Rate 16 01/16/2024 11:53 AM CDT Oxygen Saturation 100% 01/16/2024 11:53 AM CDT Inhaled Oxygen Concentration - - Weight 113.4 kg (250 lb) 01/16/2024 8:56 AM CDT Height 182.9 cm (6') 01/16/2024 8:56 AM CDT Body Mass Index 33.91 01/16/2024 8:56 AM CDT Plan of Treatment Health Maintenance Due Date Last Done Comments Hepatitis C Virus (HCV) Screening 1970 TdaP Immunization 1970 Hepatitis B Immunization (1 of 3 - 19+ 3-dose series) 02/22/1991 Colonoscopy 02/22/2017 Colorectal Cancer Screening 02/22/2017 Cologuard 02/22/2022 Immunochemical Fecal Occult Blood 02/22/2022 Mammogram 02/22/2022 Pneumococcal Immunization (5 0+ years) (1 of 1 - PCV) 02/22/2022 Zoster Immunization (1 of 2) 02/22/2022 Influenza Immunization (#1) 2024 SARS-COV-2 Immunization (3 - season) 2024 05/31/2021, 03/06/2021 Respiratory Syncytial Virus (RSV) Immunization (Adult) (1 - 1-dose 75+ series) 02/22/2047 Meningococcal Immunization (ACWY) Aged Out No longer eligible b ased on patient's age to complete this topic Pneumococcal Immunization Combined Aged Out No longer eligible b ased on patient's age to complete this topic Rotavirus Immunization Aged Out No lo nger eligible based on patient's age to complete this topic Care Teams Language Arts Teacher Relationship Specialty Start Date End Date Provider, Not On File [place] PCP - General 09/04/23
--- OUTSIDE RECORDS SUMMARY | 2024-07-13 08:58 | XMS_ITS ---
Author Organization [facility] Address [address] [place] [address] Care Team Providers Care Crown Presser Name Role Phone Liz Myers Primary Care Provider [phone] Encounters Encounter Location Date Provider Diagnosis [facility] [address] [place] [address] 05/30/2023 Liz Myers Plan Of Treatment No Information Progress Notes * Shalini LOGANB:[birth year] (53 yo F)Acc No.[id number]:05/30/2023 Patient: Isra harris Renetta :1970 A ge:53 Y S ex:Female Address[address] [facility], [place] [address] * true * Date: Generated for Nicolasa zelaya/Nathalia/eTransmitting on: 0 07/13/2024 08:58 AM BOOTMAKER HAND
--- OUTSIDE RECORDS SUMMARY | 2024-07-13 08:58 | XMS_ITS ---
Author Organization [facility] Address [address] [place] [address] Care Team Providers Care Scraper Tender Name Role Phone Liz Myers Primary Care Provider [phone] Allergies Allergen (clinical drug ingredient) Drug/Non Drug Allergy documented on EMR Reaction Allergy Type Onset Date Status meperidine Demerol Unknown Drug Allergy Active hydroxyzine Vistaril Unknown Drug Allergy Activ e peanut allergenic extract Peanut (Diagnostic) Unknown Drug Allergy Active Bee Sting Unknown Allergy Active Results Component Value Reference Range Notes Ultrasound : Soft Tissue Upp er Back : [id number] Reviewed date:08/20/2023 12:45:16 PM Interpretation: Performing Lab: Notes/Report: REASON FOR VISIT headaches Medications Medication SIG (Take, Route, Frequency, Duration) Notes Start Date End Date Status buPROPion HCl ER (XL) 150 MG 1 tablet in the morning Orally Once a day for 30 day(s) psych-dr. estrada Not-Taking Albuterol Sulfate HFA 108 (90 Base) MCG/ACT 1 puff as needed Inhalation every 4 hrs for 90 days Not-Taking Topiramate 100 MG 1 1/2 tablet Orally twice daily for 30 days Active Ranolazine ER 500 MG 1 tablet Orally Twice a day RUTH CARDIO Not-Taking Atorvastatin Calcium 20 MG 1 tablet Orally Once a day RUTH CARDIO Active Furosemide 40 MG TAKE 1 TABLET BY MOUTH EVERY DAY for 90 Active Ondansetron HCl 4 MG 1 tablet Orally twice daily for 14 days 05/30/2023 Active Lurasidone HCl 40 MG 1 tablet with food Orally Once a day for 30 days psych- Dr. estrada in [facility] Active SUMAtriptan Succinate 100 MG 1 tablet at least 2 hours between doses as needed Orally Twice a day for 30 days 12/13/2022 Active Vitamin D (Cholecalciferol) 25 MCG (1000 UT) 2 tablet Orally Once a day for 30 days 05/30/2023 08/28/2023 Active Amitriptyline HCl 50 MG TAKE 1 TABLET BY MOUTH EVERY DAY AT BEDTIME for 90 Active Montelukast Sodium 10 MG TAKE 1 TABLET BY MOUTH EVERY DAY for 90 Active Alcohol Wipes 70 % as directed Externally four times daily for 30 days 09/22/2022 Active Sertraline HCl 50 MG 1 tablet Orally Once a day for 30 days psych- dr. estrada Active Escitalopram Oxalate 20 MG 1 tablet Orally Once a day for 30 days psych-dr. estrada Active Lancets - as directed externally four times daily for 30 days 09/22/2022 Active Eliquis 2.5 MG 1 tablet Orally Twice a day for 90 days Active Glucometer of choice regular as directed external four times daily for 365 days 09/22/2022 09/22/2023 Active Fluticasone Propionate 50 MCG/ACT 1 spray in each nostril Nasally Once a day for 90 days 06/08/2022 Active Social History Tobacco Use: Social History Observation [...] Are you an other tobacco user? No Vital Signs Temperature 97.5 degrees Fahrenheit 08/01/19 24 Blood pressure systolic 116 mm Hg 08/01/19 24 Blood pressure diastolic 81 mm Hg 024 Heart Rate 79 /min 08/01/2023 Respiratory Rate 18 /min 08/01/2023 Height 71 in 08/01/2023 Weight 256 lbs 08/01/2023 BMI 35.7 kg/m2 08/01/2023 Oximetry 99 % 08/01/2023 Height-cm 180.34 cm 08/01/2023 Weight-kg 116.12 kg 08/01/2023 Encounters Encounter Location Date Provider Diagnosis [facility] [address] [place] [address] 08/01/2023 Liz Myers Migraine without status migrainosus, not intractable, unspecified migraine type G43.909 ; Mass of subcutaneous tissue R22.9 ; BMI 35.0-35.9,adult Z68.35 ; Exercise counseling Z71.82 and Dietary counseling Z71.3 Assessments Encounter Date Diagnosis (ICD Code) Assessment Notes Treatment Notes Treatment Clinical Notes Section Notes 08/01/2023 Migraine without status migrainosus, not intractable, unspecified migraine type (ICD-10 - G43.909) Take medicines only as directed by your doctor. Take only the headache medicines recommended by your doctor, including rrrc-scd-ciymwr r medicines. Always have your medicines with [...] to help track your headache progress. 08/01/2023 Mass of subcutaneous tissue (ICD-10 - R22.9) 08/01/2023 BMI 35.0-35.9,adult (ICD-10 - Z68.35) 08/01/2023 Exercise counseling (ICD-10 - Z71.82) 08/01/2023 Dietary counseling (ICD-10 - Z71.3) Plan Of Treatment Medication Medication Name Sig Start Date Stop Date Notes Topiramate 100 MG 1 1/2 tablet Orally twice daily for 30 days SUMAtriptan Succinate 100 MG 1 tablet at least 2 hours between doses as needed Orally Twice a day for 30 days 12/13/2022 Treatment Notes Assessment Notes Migraine without status migr ainosus, not intractable, unspecified migraine type Take medicines only as directed by your doctor. Take only the headache medicines recommended by your doctor, including qrar-cdj-synnlss medicines. Always have your medicines with you [...] calendar to help track your headache progress. Next Appt Details Follow Up: 3 Months,Priscila cobb son: Progress Notes * Melissa LOGANaDOB:[birth year] (53 yo F)Acc No.[id number]:08/01/2023 Progress Notes Patient: Isra kimberly Renetta Provider: Isra Myers :1970 A ge:53 Y S ex:Female Date:08/01/2023 Address:[address] [place] [address], [address] Check In:11:14 AM CSTCheck O ut:11:52 AM BLADE BONER Subjective: * Chief Complaints: * H eadaches * HPI: N ew/Follow-up Patient Consult: 53 year old female with extensive pmhx presents with complaints of worsening headaches. denies neurological symptoms associated with headaches as she has had before. imitrex is helpful. she reports a significant increase in stressors and she believes this is causing increase in headache frequency. 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 denies focal neurological defecit, nausea, vomiting, photophobia, phonophobia. c omplaints of soft, nonpainful lump on her left lateral chest under her arm near the incision from her breast reduction. She was told in the past this was a fatty tumor and it would self resolve, she reports it has not and it makes her very self concious. denies redness, drainage, discharge. n o additional concerns addressed at this visit. D epression Screening: PHQ-9 L ittle interest or pleasure in doing things?Not at all F eeling down, depressed, or hopeless N ot at all T rouble falling or staying asleep, or sleeping too much N ot at all F eeling tired or having little energy N ot at all P oor appetite or overeating N ot at all F eeling bad about yourself or that you are a failure, or have let yourself or your family down N ot at all T rouble concentrating on things, such as reading the newspaper or watching television N ot at all M oving or speaking so slowly that other people could have noticed; or the opposite, being so fidgety or restless that you have been moving around a lot more than usual N ot at all T houghts that you would be better off or of hurting yourself in some way N ot at all T otal Score 0 Intervention D epression Screening Findings N egative D epression Screening: PHQ-2 (2015 Edition) L ittle interest or pleasure in doing things??Not at all F eeling down, depressed, or hopeless? N ot at all T otal Score 0 * ROS: G eneral/Constitutional: Patient denies f atigue , fever , chills. P atient complaining of h eadache. R espiratory: Patient denies c hronic cough, hemoptysis, shortness of breath, wheezing, sputum production. C ardiovascular: Patient denies c hest pain, claudication, dizziness, orthopnea, palpitations. G astrointestinal: Patient denies a bdominal pain , nausea , vomiting , weight loss. S kin: Comments S HPI for details. N eurologic: Patient denies s eizures , transient loss of vision , tremor , fainting. C omments S HPI for details. P sychiatric: Comments S HPI for details. * Medical History: * Surgical History: s tint placed RT ventricle 2001heart cath 2020hysterectomy 2012breast reduction 2012reconstructive female surgery 1985 * Hospitalization/Major Diagno stic Procedure: [facility] and blurred [facility] 05[facility]01/2021[facility] - right foot injury 12/2021[facility] - flu 06/04/2022[facility] - cardiac issues 07/03/2022 * Family History: F ather: alive, diagnosed with Diabetes, Heart Dz, Cancer. M other: , diagnosed with Mental Illness. * Social History: T obacco Use: T obacco Use/Smoking A re you a n onsmoker Tobacco use other than smoking A re you an other tobacco user? N o Are you a second hand smoker? A re you a second hand smoker? N o P CMH: A RANDALT E ducation: M ore than high school diploma/GED E mployment: F ull time D o you understand spoken french? Y es C ommunication needs (hearing, visual or cognitive): N o G ood ability to interact with other people:?Yes I nsecurities in? (list all that apply) N one A dvanced Care Planning in place? (Must have copy of legal document) N o A dvanced Care Planning Date 0 05/30/2023 R eviewed/Updated 0 08/01/2023 S exual History: S exual History H ad sex in the past 12 months (vaginal, oral, or anal)? Y es w ith M en only U se protection? N o P revention strategies discussed: C ondoms H ave you ever had a Sexually transmitted disease? N o Details of Sexual History A re you sexually active? Y es A re you having any sexual problems? N o H ave you had any sexually transmitted diseases (STDs)? N o Sexual Abuse H istory: n one D rugs/Alcohol: D rugs H ave you used drugs other than those for medical reasons in the past 12 months? N o Alcohol Screen (Audit-C) D id you have a drink containing alcohol in the past year? N o P oints 0 I nterpretation N egative Caffeine I ntake: m ore than 4 cups per day * Medications: T akingAtorvastatin Calcium 20 MG Tablet 1 tablet Orally Once a day, Notes: RUTH CARDIOEliquis 2.5 MG Tablet 1 tablet Orally Twice a dayFluticasone Propionate 50 MCG/ACT Suspension 1 spray in each nostril Nasally Once a dayGlucometer of choice regular meter as directed external four times daily, stop date 09/22/2023Lancets - Miscellaneous as directed externally four times dailyAlcohol Wipes 70 % Miscellaneous as directed Externally four times dailyMontelukast Sodium 10 MG Tablet TAKE 1 TABLET BY MOUTH EVERY DAY Amitriptyline HCl 50 MG Tablet TAKE 1 TABLET BY MOUTH EVERY DAY AT BEDTIME SUMAtriptan Succinate 50 MG Tablet 1 tablet at least 2 hours between doses as needed Orally Twice a dayEscitalopram Oxalate 20 MG Tablet 1 tablet Orally Once a day, Notes: psychmarcos Kempertraline HCl 50 MG Tablet 1 tablet Orally Once a day, Notes: toma estradaLurasidone HCl 40 MG Tablet 1 tablet with food Orally Once a day, Notes: toma estrada in Anup ILOndansetron HCl 4 MG Tablet 1 tablet Orally twice dailyVitamin D (Cholecalciferol) 25 MCG (1000 UT) Tablet 2 tablet Orally Once a day, stop date 08/28/2023Topiramate 100 MG Tablet TAKE 1 TABLET BY MOUTH TWICE DAILY Furosemide 40 MG Tablet TAKE 1 TABLET BY MOUTH EVERY DAY Taking Atorvastatin Calcium 20 MG Tablet 1 tablet Orally Once a day, Notes: RUTH CARDIOTaking Eliquis 2.5 MG Tablet 1 tablet Orally Twice a dayTaking Fluticasone Propionate 50 MCG/ACT Suspension 1 spray in each nostril Nasally Once a dayTaking Glucometer of choice regular meter as directed external four times daily, stop date 09/22/2023Taking Lancets - Miscellaneous as directed externally four times dailyTaking Alcohol Wipes 70 % Miscellaneous as directed Externally four times dailyTaking Montelukast Sodium 10 MG Tablet TAKE 1 TABLET BY MOUTH EVERY DAY Taking Amitriptyline HCl 50 MG Tablet TAKE 1 TABLET BY MOUTH EVERY DAY AT BEDTIME Taking SUMAtriptan Succinate 50 MG Tablet 1 tablet at least 2 hours between doses as needed Orally Twice a dayTaking Escitalopram Oxalate 20 MG Tablet 1 tablet Orally Once a day, Notes: mika estradaTaking Sertraline HCl 50 MG Tablet 1 tablet Orally Once a day, Notes: toma estradaTaking Lurasidone HCl 40 MG Tablet 1 tablet with food Orally Once a day, Notes: toma STEWARTTaking Ondansetron HCl 4 MG Tablet 1 tablet Orally twice dailyTaking Vitamin D (Cholecalciferol) 25 MCG (1000 UT) Tablet 2 tablet Orally Once a day, stop date 08/28/2023Taking Topiramate 100 MG Tablet TAKE 1 TABLET BY MOUTH TWICE DAILY Taking Furosemide 40 MG Tablet TAKE 1 TABLET BY MOUTH EVERY DAY Not- Taking/PRNRanolazine ER 500 MG Tablet Extended Release 12 Hour 1 tablet Orally Twice a day, Notes: RUTH CARDIOAlbuterol Sulfate HFA 108 (90 Base) MCG/ACT Aerosol Solution 1 puff as needed Inhalation every 4 hrsbuPROPion HCl ER (XL) 150 MG Tablet Extended Release 24 Hour 1 tablet in the morning Orally Once a day, Notes: psych-dr. younguldingMedication List reviewed and reconciled with the patientNot-Taking/PRN Ranolazine ER 500 MG Tablet Extended Release 12 Hour 1 tablet Orally Twice a day, Notes: RUTH CARDIONot- Taking/PRN Albuterol Sulfate HFA 108 (90 Base) MCG/ACT Aerosol Solution 1 puff as needed Inhalation every 4 hrsNot-Taking/PRN buPROPion HCl ER (XL) 150 MG Tablet Extended Release 24 Hour 1 tablet in the morning Orally Once a day, Notes: psych-drJuanjose caldwellingMedication List reviewed and reconciled with the patient * Allergies: D Linsey Coates (Diagnostic)no[Allergies Verified] Objective: * Vitals: Wt 256 lbs 08/01/2023 11:27:37 AM CDT Wt-kg* 116.12 kg 08/01/2023 11:27:37 AM CDT Maria Esther F orrester INSURANCE RISK ANALYST Ht* 71 in 08/01/2023 11:27:37 AM CDT Maria Esther F orrester INSURANCE RISK ANALYST Ht-cm* 180.34 cm 08/01/2023 11:27:37 AM CDT Maria Esther F orrester INSURANCE RISK ANALYST BMI* 35.7 Index 08/01/2023 11:27:37 AM CDT Maria Esther F orrester INSURANCE RISK ANALYST BP* 116/81 mm Hg 08/01/2023 11:27:37 AM CDT Maria Esther F orrester INSURANCE RISK ANALYST Temp* 97.5 F 08/01/2023 11:27:37 AM CDT Maria Esther F orrester INSURANCE RISK ANALYST HR* 79 /min 08/01/2023 11:27:37 AM CDT Maria Esther F orrester INSURANCE RISK ANALYST RR* 18 /min 08/01/2023 11:27:37 AM CDT Maria Esther F orrester INSURANCE RISK ANALYST Oxygen sat %* 99 % 08/01/2023 11:27:37 AM CDT Maria Esther bates INSURANCE RISK ANALYST * Examination: G eneral Examination: GENERAL APPEARANCE: a lert, well hydrated, ill appearing.? HEAD: n ormocephalic. EYES: e xtraocular movement intact (EOMI) , pupils equal, round, reactive to light and accommodation. NECK/THYROID: n luis daniel supple. SKIN: good turgor, no rashes, warm and dry. HEART: r egular rate and rhythm, S1, S2 normal, no murmurs.? LUNGS: c lear to auscultation bilaterally. No wheezing, ronchai, rales or cough.. CHEST: l eft lateral chest wall: soft, palpable subcutaneous mass- likely lipoma. ABDOMEN: A bdomen soft, nontender, nondistended. Normal bowel sounds present. No masses palpable. EXTREMITIES: n o clubbing, cyanosis, or edema. PERIPHERAL PULSES: 2 + radial. NEUROLOGIC: Alert and oriented, cooperative with exam, cranial nerves 2-12 grossly intact, no tremor, normal strength, tone and reflexes. PSYCH: a lert, oriented , good eye contact , judgement and insight good , anxious appearing , tearful. Assessment: * Assessment: 1. M igraine without status migrainosus, not intractable, unspecified migraine type - G43.909 (Primary) 2 . M ass of subcutaneous tissue - R22.9 3 . B [place] 35.0-35.9,adult - Z68.35?4. E xercise counseling - Z71.82 5 . D ietary counseling - Z71.3 Plan: * Treatment: 2. M ass of subcutaneous tissue I maging: Ultrasound : Soft Tissue Upper Back : [id number] * Procedure Codes: 7 6604 US EXAM, CHEST, B-SCAN * Preventive Medicine: YOUR PREVENTIVE WELLNESS PLAN: O ral Health: The recommended frequency for dental check-ups is: e very 6 months Last dental check-up was: m ore than 6 months ago Intervention: e ncouraged pt to make appointment with their dentist or with a dentist at [facility] Education handouts provided: L earning about Dental Care Counseling: C are goal follow-up plan: BMI management provided Y es Exercise Counseling Provided- Y es Nutrition/Dietary Counseling provided?Yes Above Normal BMI Follow-up G iving encouragement to exercise, Lifestyle education regarding diet * Follow Up: 3 Months,prn * * Sign off status: Completed Visit Status: Isra HK (Check Out) true * Provider: Isra Myers Date: 08/01/2023 Generated for Nicolasa zelaya/Nathalia/Rosalinarandhaval on: 07/13/2024 08:58 AM BLADE BONER History and Physical Notes * HPI (History of Present Illness) Category Sub-Category Detail Notes Category Not es Depression Screening PHQ-9 Little inte rest or pleasure in doing things: Not at all Feeling down, depressed, or hopeless: No t at all Trouble falling or staying asleep, or sl eeping too much: Not at all Feeling tired or having little energy: N ot at all Poor appetite or overeating: Not at all Feeling bad about yourself o r that you are a failure, or have let yourself or your family down: Not at all Trouble concentrating on thi ngs, such as reading the newspaper or watching television: Not at all Moving or speaking so slowly that other people could have noticed; or the opposite, being so fidgety or restless that you have been moving around a lot more than usual: Not at all Thoughts that you would be b galen off or of hurting yourself in some way: Not at all Total Score: 0 Intervention Depression Screening Findings: N egative Depression Screening PHQ-2 (2015 Edition) Little interest or pleasure in doing things?: Not at all Feeling down, depressed, or hopeless?: N ot at all Total Score: 0 Examination Category Sub-Category Detail Notes Category Not es General Examination GENERAL APPEARANCE: alert, w ell hydrated, ill appearing HEAD: normocephalic EYES: extraocular movement intact (EOMI) , pupils equal, round, reactive to light and accommodation NECK/THYROID: neck supple HEART: regular rate and rhy thm, S1, S2 normal, no murmurs CHEST: left lateral chest w all: soft, palpable subcutaneous mass- likely lipoma LUNGS: clear to auscultatio n bilaterally. No wheezing, ronchai, rales or cough. ABDOMEN: Abdomen soft, nonten leonard, nondistended. Normal bowel sounds present. No masses palpable NEUROLOGIC: Alert and oriented, cooperative with exam, cranial nerves 2-12 grossly intact, no tremor, normal strength, tone and reflexes SKIN: good turgor, no rash es, warm and dry EXTREMITIES: no clubbing, cyanosi s, or edema PERIPHERAL PULSES: 2+ radial PSYCH: alert, oriented , go od eye contact , judgement and insight good , anxious appearing , tearful
--- OUTSIDE RECORDS SUMMARY | 2024-07-13 08:58 | XMS_ITS | Continuity of Care Document ---
Author Organization [facility] Address [address] [place] [address] Phone Care Team Providers Care Ups Driver Name Role Phone Danial You DO Unavailable Unavailable Allergies, Adverse Reactions, Alerts Substance Reaction Status Criticality bee venom protein (honey bee) Active No Information Medications Medication Instructions Dosage Effective Dates (start - stop) Status Comments bupropion HCl XL 150 mg 24 hr tablet, extended release take 1 tablet by oral route every day - Active escitalopram 20 mg tablet take 1 tablet by oral route every day 20 MG - Active Latuda 60 mg tablet take 1 tablet by oral route every day with food (at least 350 calories) 60 MG - Active alprazolam 0.5 mg tablet take 1 tablet by oral route 3 times every day 0.5 MG - Active Increase to 0.5mg TID, D/C previous order. valacyclovir 1 gram tablet take 2 tablet by oral route every 12 hours as needed 2000 MG - Active Spiriva Respimat 2.5 mcg/actuation solution for inhalation inhale 1 puff by inhalation route every day at the same time each day 2.5 MCG - Active cetirizine 10 mg tablet take 1 tablet by oral route every day 10 MG - Active montelukast 10 mg tablet take 1 tablet by oral route every day in the evening 10 MG - Active ProAir HFA 90 mcg/actuation aerosol inhaler inhale 2 puff by inhalation route every 4 - 6 hours as needed - Active Symbicort 160 mcg-4.5 mcg/actuation HFA aerosol inhaler inhale 2 puff by inhalation route 2 times every day in the morning and evening 2 puff - Active furosemide 40 mg tablet take 1 tablet by oral route every day 40 MG - Active metoprolol succinate ER 25 mg tablet,extended release 24 hr take 1 tablet by oral route every day 25 MG - Active Linzess 290 mcg capsule take 1 capsule by oral route every day on an empty stomach at least 30 minutes before 1st meal of the day 290 MCG - Active hyoscyamine sulfate 0.125 mg tablet take 1 tablet by oral route every 6 hours as needed 0.125 MG - Active Klor-Con M10 mEq tablet,extended release take 1 tablet by oral route every day with food 10 MEQ - Active epinephrine 0.3 mg/0.3 mL injection, auto-injector inject 0.3 milliliter by intramuscular route once as needed for anaphylaxis 0.3 MG - Active Aspir-81 81 mg tablet,delayed release take 1 tablet by oral route every day - Active alprazolam 0.5 mg tablet take 1 tablet by oral route 3 times every day 0.5 MG - No Longer Active Increase to 0.5mg TID, D/C previous order. Latuda 60 mg tablet take 1 tablet by oral route every day with food (at least 350 calories) 60 MG - No Longer Active bupropion HCl XL 150 mg 24 hr tablet, extended release take 1 tablet by oral route every day - No Longer Active escitalopram 20 mg tablet take 1 tablet by oral route every day 20 MG - No Longer Active Procedures Procedure Date OFFICE/OUTPATIENT VISIT, EST OFFICE/OUTPATIENT VISIT, EST PSYCH DIAG EVAL W/MED SRVCS PSYCH DIAGNOSTIC EVALUATION Advance Directives Directive Yes / No Effective Date File Name Other Directive No N/A [facility] WARNING:The information contained in this section is historical and is provided for information only and does not constitute a legal document or any assurance that the information is still accurate. Please verify the information with the vega of the legal document before using it for clinical purposes. Encounters Encounter Description Practice Location Reason(s) For Visit Diagnoses Date Provider Providers Copied on Encounter OFFICE/OUTPA TIENT VISIT, EST [facility], [address], [place], [id number], [place] tel:[phone] [facility] Schizoaffect ofelia disorder, bipolar typeBody mass index (BMI) 33.0-33.9, adult 8 Avelino Barrow. [address], [id number] [place], [id number], [place]. tel:[phone] Referring Provider: Danial Avelino, [address] [id number] [place], [address]. tel:[phone] OFFICE/OUTPA TIENT VISIT, EST [facility], [address], [id number], [place] tel:[phone] [facility] Body mass index (BMI) 33.0-33.9, adultSchizoa ffective disorder, bipolar type 3 8 Avelino Barrow. [address], [id number] [place], [id number], [place]. tel:[phone] Referring Provider: Danial Avelino, [address] [id number] [place], [address]. tel:[phone] PSYCH DIAG EVAL W/MED [facility]CS [facility], [address], [id number], [place] tel:[phone] [facility] Schizoaffect ofelia disorder, bipolar type 8 Avelinoramesh Barrow. [address], [id number] [place], [id number], [place]. tel:[phone] Referring Provider: Danial Avelino, [address] [id number] [place], [address]. tel:[phone] PSYCH DIAGNOSTIC EVALUATION [facility], [address], [place], [place], [id number], tel:[phone] [facility] Bipolar disorder, unspecified 8 Margaret Purdy. [address] [facility], [address], [place]. tel:[phone] Referring Provider: Rajwinder Robles, [address] [facility] [place], [address]. tel:[phone] Family History Family Member Type Diagnosis Age At Onset Problem (finding) Family history of undiagnosed mental illness Problem (finding) Family history of Kidne y disease Problem (finding) Family history of Heart disease Problem (finding) Family history of malignant neoplasm of ovary Problem (finding) Family history of Irritable bowel syndrome Mother Problem (finding) Mental illness Problem (finding) Family history of alcoh olism Maternal grandmother Problem (finding) depression Problem (finding) Family history of Diabetes mellitus Maternal aunt Problem (finding) depression Problem (finding) Family history of Crohn 's disease Payers Payer name Insurance type 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 Percentile Wt./[place]. Percentile BMI percentile Pulse Ox Inhaled Ox 8:29 AM 71.00 in 112.491 kg (248.00 lbs) 34.5 9 kg/m eter (2) 68 /min 130/80 mm[Hg] 2.37 meter(2) Chief Complaint And Reason For Visit No Information Reason For Referral Reason For Referral No Information Plan Of Treatment Date Type Action Status Goal Depression screening. Due on due Goal Td vaccine. Due on 18 due Goal Influenza vaccine. Due on due Goal Tdap. Due on due Goal Pap/HPV testing. Due on due Goal Pap/HPV testing. Due on due Goal Tdap. Due on due Goal Influenza vaccine. Due on due Goal Td vaccine. Due on 18 due Goal Depression screening. Due on due Goal Lifestyle education regardin g diet completed Goal Depression screening. Due on due Goal Td vaccine. Due on 18 due Goal Influenza vaccine. Due on due Goal Tdap. Due on due Goal Pap/HPV testing. Due on due Goal Pap/HPV testing. Due on due Goal Tdap. Due on due Goal Influenza vaccine. Due on due Goal Td vaccine. Due on 18 due Goal Depression screening. Due on due History Of Present Illness Encounter Date Complaint History Of Prese nt Illness No Information Functional Status Date Functional Assessmen t Pain Score 0/10 Instructions Date Instruction Additional Infor mation Giving encouragement to exercise Related to Body mass index (BMI) 33.0-33.9, adult Lifestyle education regarding di et Related to Body mass index (BMI) 33.0-33.9, adult Assessments Type Assessment Date assessment Schizoaffective disorder, bipola r type assessment Body mass index (BMI) 33.0-33.9, adult Patient Care Teams Name Effective Dates (start - stop) Status Members No Information
[2024-07-13 09:25] LABS: EDCOVIDSCREEN Negative (Negative); EDINFLUASCREEN Negative (Negative); EDINFLUBSCREEN Negative (Negative)
--- NOTE | 2024-07-13 09:36 | ED_ITS ---
HPI - General Adult General Chief complaint: Upper Respiratory Infection Stated complaint: sore throat,coughing mucas,lost voice Source: patient Mode of arrival: ambulatory Limitations: no limitations History of Present Illness HPI narrative: Patient presents for evaluation of sick symptoms. She initially developed a cough of 4 days ago. Yesterday she had additional symptoms present including chills, sore throat, nausea, vomiting, diarrhea, wheezing, generalized body aches and fatigue. 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 She has an underlying history history of bipolar disorder, Factor V Leiden deficiency and is anticoagulated with eliquis. Related Data Home Medications ?Medication ?Instructions ?Recorded ?Confirmed ?Last Taken ?Type amlodipine 2.5 mg tablet 2.5 mg PO DAILY 11/01/23 07/13/24 Unknown History sumatriptan succinate 100 mg tablet 100 mg PO BID PRN Migraine Headache 11/01/23 11/24/23 Unknown History trazodone 50 mg tablet 50 mg PO QHS 11/01/23 11/24/23 Unknown History apixaban 2.5 mg tablet (Eliquis) 2.5 mg PO BID 11/24/23 11/24/23 Unknown History atorvastatin 20 mg tablet 20 mg PO DAILY 11/24/23 11/24/23 Unknown History lurasidone 80 mg tablet 80 mg PO DAILY 11/24/23 11/24/23 Unknown History sertraline 100 mg tablet 100 mg PO DAILY 11/24/23 11/24/23 Unknown History albuterol sulfate 90 mcg/actuation inhalation 07/13/24 Unknown History aerosol inhaler furosemide 20 mg tablet mg 07/13/24 Unknown History prazosin 1 mg capsule mg 07/13/24 Unknown History topiramate 100 mg tablet mg 07/13/24 Unknown History Allergies Allergy/AdvReac Type Severity Reaction Status Date / Time atropine Allergy Unknown Unknown Verified 11/24/23 10:25 hydrocodone Allergy Unknown Unknown Verified 11/24/23 10:23 hydroxyzine Allergy Unknown Unknown Verified 11/24/23 10:23 meperidine Allergy Unknown Unknown Verified 11/24/23 10:23 Review of Systems Review of Systems: CONSTITUTIONAL: Reports chills. Denies fever. EYES: Denies visual changes, redness, or discharge. ENT: Reports sinus congestion and sore throat. Denies otalgia CARDIOVASCULAR: Denies chest pain, palpitations, or edema. RESPIRATORY: Reports cough, wheezing, and pleuritic chest pain GASTROINTESTINAL: Reports nausea, vomiting and diarrhea GENITOURINARY: Denies dysuria or hematuria. SKIN: Denies rash or itching. MUSCULOSKELETAL: Reports generalized body aches NEUROLOGIC: Denies headache, numbness, dizziness, or weakness. PSYCHIATRIC: Denies anxiety or depression. [facility] Past Medical History Medical History Migraine Schizo affective schizophrenia Anxiety and depression Factor V deficiency CAD (coronary artery disease) Surgical History Surgical History History of carpal tunnel surgery of left wrist History of lumpectomy of left breast Hx of breast reduction, elective Stented coronary artery H/O: hysterectomy Family History Family History Other Heart disease Social History Social History (Updated 11/04/23 @ 20:28 by Julieta Frankel NP) Smoking status: Never smoker Alcohol intake: unknown Substance use type: does not use Gender identity (if verbalized by the patient): Female Exam Narrative: GENERAL: Well-appearing, well-nourished, and in no acute distress. HEAD: Normocephalic, atraumatic. EYES: PERRLA and EOMI. ENT: Nares clear, no rhinorrhea or epistaxis. Mucous membranes moist. Oropharynx without tonsillar hypertrophy exudate or other lesions. Bilateral TMs pearly mejía nonbulging NECK: Supple. No adenopathy or masses. No carotid bruits or JVD CHEST: Cough present on exam. Mild wheezing noted HEART: Regular rate and rhythm. No murmur heard. Normal peripheral pulses. ABDOMEN: Soft, nontender, nondistended, normal active bowel sounds. EXTREMITIES: Normal range of motion. No edema. SKIN: Warm, dry, no rash. NEURO: No focal deficits. Alert and oriented x3. PSYCH: Normal mood and affect. Course Course Emergency Course: This is a 54 year old female who presented for evaluation of sick symptoms. Strep, COVID, flu and CXR negative. Exam is consistent with acute viral illness. Increase hydration. OTC agents for symptom management. Will dc with zofran and tessalon. Follow up with primary provider. Go to the ER for worsening symptoms. Pt in agreement with plan of care. Level of Care: Express Care Visit Vital Signs Vital signs: Vital Signs Temperature 37.1 C 07/13/24 08:58 Pulse Rate 95 07/13/24 08:58 Respiratory Rate 20 07/13/24 08:58 Blood Pressure 127/78 07/13/24 08:58 Pulse Oximetry 100 07/13/24 08:58 Oxygen Delivery Room Air 07/13/24 08:58 Temperature 37.1 C 07/13/24 08:58 Pulse Rate 95 07/13/24 08:58 Respiratory Rate 20 07/13/24 08:58 Blood Pressure 127/78 07/13/24 08:58 Pulse Oximetry 100 07/13/24 08:58 Oxygen Delivery Room Air 07/13/24 08:58 Medical Decision Making Vital Signs Vital Signs: Vital Signs Temperature 37.1 C 07/13/24 08:58 Pulse Rate 95 07/13/24 08:58 Respiratory Rate 20 07/13/24 08:58 Blood Pressure 127/78 07/13/24 08:58 Pulse Oximetry 100 07/13/24 08:58 Oxygen Delivery Room Air 07/13/24 08:58 Temperature 37.1 C 07/13/24 08:58 Pulse Rate 95 07/13/24 08:58 Respiratory Rate 20 07/13/24 08:58 Blood Pressure 127/78 07/13/24 08:58 Pulse Oximetry 100 07/13/24 08:58 Oxygen Delivery Room Air 07/13/24 08:58 Lab Data Labs: Lab Results 07/13/24 07/13/24 Range/Units 09:02 09:23 POC Influenza A Ag Negative (Negative) POC Influenza B Ag Negative (Negative) POC SARS CoV-2 Ag Negative (Negative) POC Grp A Strep Screen Negative (Negative) Imaging Data My impression: EXAMINATION: XR chest 2V DATE: 07/13/2024 09:49 INDICATION: Cough. TECHNIQUE: Frontal and lateral views of the chest were obtained. COMPARISON: None. FINDINGS: There is no pneumonia, pleural effusion, or pneumothorax. The heart size is normal. IMPRESSION: 1. No acute cardiopulmonary disease. Discharge Plan Discharge Clinical Impression: Acute viral syndrome Patient Disposition: Home, Self-Care Condition: Stable Instructions: Antibiotic Form, Viral Syndrome (ED) Patient Language: Surinamese Prescriptions: New ondansetron 4 mg tablet,disintegrating 4 mg PO Q6H PRN (Reason: nausea and vomiting) Qty: 15 0RF benzonatate 200 mg capsule 200 mg PO TID PRN (Reason: cough) Qty: 30 0RF No Action amlodipine 2.5 mg tablet 2.5 mg PO DAILY sumatriptan succinate 100 mg tablet 100 mg PO BID PRN (Reason: Migraine Headache) trazodone 50 mg tablet 50 mg PO QHS Eliquis 2.5 mg tablet 2.5 mg PO BID atorvastatin 20 mg tablet 20 mg PO DAILY lurasidone 80 mg tablet 80 mg PO DAILY sertraline 100 mg tablet 100 mg PO DAILY prazosin 1 mg capsule furosemide 20 mg tablet albuterol sulfate 90 mcg/actuation HFA aerosol inhaler INHALATION topiramate 100 mg tablet Follow-up/Referrals: Bridges,Tiffanie Yung APN [Primary Care Provider] - Stand Alone Forms: Work/School Release IP Time of Disposition: 10:03
[2024-07-13 09:56] LABS: EDSTREPNEGPOS1 Negative (Negative)
== END 2024-07-13 10:08 | disposition home or self-care (01) ==
PROVIDERS: Emergency Provider Nurse Practitioner; PCP Nurse Practitioner Family
DX: B34.9 Viral infection, unspecified (principal); J02.0 Streptococcal pharyngitis; Z20.822 Contact with and (suspected) exposure to COVID-19; I25.10 Atherosclerotic heart disease of native coronary artery without angina pectoris; D68.2 Hereditary deficiency of other clotting factors; F41.9 Anxiety disorder, unspecified; F32.A Depression, unspecified; F20.9 Schizophrenia, unspecified; Z79.01 Long term (current) use of anticoagulants; Z95.5 Presence of coronary angioplasty implant and graft
CPT/HCPCS: 71046; 87081; 87426; 87804; 87880; 99213; G0463